=== PATIENT | female | born 1950 | race Caucasian/White ===

== ENCOUNTER → 2018-07-02 | Outpatient (CLI) | payer MEDICARE ==
[~2018-07-02] MED LIST: GADOBUTROL 7.5 MMOL/7.5 ML PFS ONE
== END | disposition home or self-care (01) ==
LOC: CFH 14:39
PROVIDERS: ATTEND Family Medicine Sports Medicine
DX: M79.632 Pain in left forearm (principal); R22.30 Localized swelling, mass and lump, unspecified upper limb
CPT/HCPCS: 73220; 82565; A9585